=== PATIENT | male | born 1965 | race Two or more races ===

== ENCOUNTER 2018-12-19 15:14 | Inpatient (IN) ==
[2018-12-19] MEDS ORDERED: ALBUTEROL SULFATE 2.5 MG/3 ML NEB ONE ×2 (15:28→15:34)
[2018-12-19] MEDS ORDERED: methylPREDNISolone 125 MG/2 ML VIAL IVP ONE (15:28)
[2018-12-19] MEDS ORDERED: Sodium Chloride 0.9% 1,000 ML PRIMARY IV ONE (15:28)
--- NOTE | 2018-12-19 15:32 | EKG ---
[address] [address] Measurements Intervals [place] Rate: 114 P: 34 ID: [id number] QRS: -32 QRSD: 92 T: -2 QT: 330 QTc: 397 Interpretive Statements SINUS TACHYCARDIA LEFT AXIS DEVIATION No previous ECG available for comparison Electronically Signed On 12-20-18 12:59:23 MST by Daniel Schultz [email or web address]
[2018-12-19 15:54] LABS: VENOUS PH 7.51 (7.32-7.42)
[2018-12-19 16:03] LABS: BASOPHILS # (AUTO) 0.03 10*3/UL; BASOPHILS % (AUTO) 0.3 % (0-1); EOSINOPHILS # (AUTO) 0.25 10*3/UL; EOSINOPHILS % (AUTO) 2.1 % (0-8); Hematocrit [HCT] 40.9 % (42.0-52.0); Hemoglobin [HGB] 14.1 g/dL (14.0-18.0); LYMPHOCYTES # (AUTO) 2.14 10*3/uL; MEAN CORPUSCULAR HGB CONC 34.5 g/dL (33-37); MEAN PLATELET VOLUME 9.5 FL (7.4-12.2); MONOCYTES # (AUTO) 1.04 10*3/UL (0.3-0.8); MONOCYTES % (AUTO) 8.8 % (5-15); NEUTROPHILS # (AUTO) 8.27 10*3/UL; NEUTROPHILS % (AUTO) 70.1 % (50-80); RED BLOOD COUNT 4.87 10^6/uL (4.70-6.10)
[2018-12-19 16:07] LABS: PLATELET MORPHOLOGY COMMENT NORMAL MORPHOLOGY (NORM); RBC MORPHOLOGY COMMENT NORMAL MORPHOLOGY (NORM); WBC MORPHOLOGY COMMENT NORMAL MORPHOLOGY (NORM)
--- NOTE | 2018-12-19 16:15 | DI ---
XR CXR 1VW 12/19/2018 3:29 PM HISTORY: [facility] [place] [facility] ^Dyspnea Comparison: None. Findings: A single frontal view of the chest is submitted. Images demonstrate patchy left lung base opacity. There is no large pneumothorax or pleural effusion. The cardiomediastinal silhouette is within normal limits for technique. The osseous structures are g rossly unremarkable. Impression: Early left lung base airspace disease. Repeat imaging 6 weeks following completion of th erapy is recommended in order to ensure resolution.
[2018-12-19 16:16] LABS: BLOOD UREA NITROGEN 13 mg/dL (7-22); BUN/CREATININE RATIO 14.44 (6-20); SERUM ALBUMIN 4.1 g/dL (3.5-4.8)
[2018-12-19] MEDS ORDERED: cefTRIAXone Inj 2 GM in Sodium Chloride 0.9% 100 ML IV ONE (16:23)
--- NOTE | 2018-12-19 16:49 | PDOC ---
Dyspnea HPI - General Chief Complaint: Dyspnea Stated Complaint: COUGH, DYSPNEA, LOW O2 SATS Date Seen by Provider: 12/19/18 Time Seen by Provider: 15:15 Source: POSITIVE: Patient, EMS Exam Limitations: POSITIVE: No limitations Treatment Prior to Arrival: REPORTS: Oxygen, Other (DuoNeb) Nurse's Notes Reviewed & Considered: Yes EMS Report Reviewed & Considered: Verbal - History of Present Illness Initial Comments: The patient is a 53-year-old male who is brought to the emergency department by ambulance from the walk-in clinic with low oxygen levels. He had developed upper respiratory symptoms approximately 2-1/2 weeks ago. He was seen earlier this week in the walk-in clinic and diagnosed with strep throat. He was treated with amoxicillin. He states that his cough became less productive after starting on the antibiotics however he continued to have frequent dry cough. He reports that he had developed increased shortness of breath as well. He presented to the walk-in clinic where his oxygen saturations were in the 70s initially on room air. He was given a duo neb and placed on oxygen in route. The patient reports that he has not had any recent fevers however has continued to have some chills. He denies any chest pain or pain or swelling in his legs. He does not have any history of heart problems or any other significant medical history. He does not have any known history of asthma or lung disease. He does not have any significant smoking history. - Patient Home Medications Home Medications: Home Medications amoxicillin 500 mg tablet 1,000 mg PO Q12H 10 Days #40 tab 12/11/18 - Patient Allergies Allergies/Adverse Reactions: Allergies Allergy/AdvReac Type Severity Reaction Status Date / Time No Known Allergies Allergy Verified 12/19/18 15:20 Past Medical History - heen HEENT History: Denies History Cardiovascular History: Denies History Respiratory History: Denies History Gastrointestinal History: Denies History Genitourinary History: Denies History Endocrine History: Denies History Musculoskeletal History: Denies History Prosthesis or Implant: No Neurological History: Denies History Blood Disorders: Denies History Psychiatric History: Denies History Male Reproductive History: Denies History Cancer History: Denies History In Past Year Been Physically Harmed or Verbally Threatened: No History of MDRO: No Tobacco Use: Never Smoker In the Past 12 Months, Have Used or Abuse Any Substance: None Previous Surgical History: Yes Type / Date of Surgery: RT ANKLE Anesthesia Reactions: No Malignant Hyperthermia: No Family History of Malignant Hyperthermia: No Significant Family History: No pertinent family hx Past Medical History Reviewed: Reviewed - No Changes ROS - Limitations ROS Limitations: No Limitations Constitution: REPORTS: Chills. DENIES: Fever Cardiovascular: DENIES: Chest Pain, Heart Palpitations, Edema Respiratory: REPORTS: Cough Non Productive, Shortness Of Breath, Wheezing Neurological: REPORTS: Denies Neuro Symptoms Gastrointestinal: REPORTS: Denies GI Symptoms Musculoskeletal: REPORTS: Denies MS Symptoms Eyes: REPORTS: Denies Symptoms ENT: REPORTS: Congestion Skin: DENIES: Rash Dyspnea Physical Exam - General Appearance General Appearance: REPORTS: Alert, Cooperative, No Acute Distress - HEENT HEENT: POSITIVE: Head Inspection Nml, Eyes Inspection Nml, Ears Inspection Nml, Nose Inspection Nml, Pharynx Inspect. Nml - Neck Neck: REPORTS: Normal Inspection. DENIES: Lymphadenopathy - Respiratory Respiratory: REPORTS: Other (The patient does have diminished breath sounds bilaterally with some rhonchi noted at the left lung base, he does have a frequent tight cough) - Cardiovascular Cardiovascular: REPORTS: Regular Rate and Rhythm, Heart Sounds Normal Peripheral Pulses: Dorsalis-pedis (R): 2+, Dorsalis-pedis (L): 2+ - Abdomen Abdomen: Soft: (All Quadrants), Denies Tenderness: (All Quadrants), No Distention: (All Quadrants) - Skin Skin: REPORTS: Intact, No Rash - Extremities Extremity: Normal ROM: (All Extremities), Normal Inspection: (All Extremities) - Neurological / Psychological Neurological: POSITIVE: Oriented X3, Motor Normal, Sensation Normal Dyspnea Progress - Results Reviewed by me Xrays/CTs/US Reviewed by me: Yes Discussed with Radiologist: Yes Radiology Findings: Chest x-ray shows early airspace disease in the left lung base per radiologist. CTA chest shows no evidence of PE, diffuse pulmonary infiltrates bilaterally which are atypical in nature per radiologist. Lab Results Reviewed by Me: Yes CBC and BMP: 12/19/18 15:40 12/19/18 15:40 Lab Results:: Laboratory Results 12/19/18 12/19/18 12/19/18 15:40 15:40 15:40 WBC 11.80 H RBC 4.87 Hgb 14.1 Hct 40.9 L MCV 84.0 MCH 29.0 MCHC 34.5 RDW Std Deviation 36.7 L RDW Coeff of Carlos 12.2 Plt Count 393 H MPV 9.5 Immature Gran % (Auto) 0.6 Neut % (Auto) 70.1 Lymph % (Auto) 18.1 [place] % (Auto) 8.8 Eos % (Auto) 2.1 Baso % (Auto) 0.3 Immature Gran # (Auto) 0.07 Neut # (Auto) 8.27 Lymph # (Auto) 2.14 [place] # (Auto) 1.04 H Eos # (Auto) 0.25 Baso # (Auto) 0.03 WBC Morphology Comment Normal morphology Plt Morphology Comment Normal morphology RBC Morph Comment Normal morphology D-Dimer 0.84 H VBG pH VBG pCO2 VBG HCO3 VBG Base Excess Sodium Potassium Chloride Carbon Dioxide Anion Gap BUN Creatinine Estimated GFR BUN/Creatinine Ratio Glucose Calculated Osmolality Calcium Magnesium Total Bilirubin AST ALT Alkaline Phosphatase Troponin I C-Reactive Protein 18.5 H NT-Pro-B Natriuret Pep 78.5 Total Protein Albumin Globulin Albumin/Globulin Ratio 12/19/18 12/19/18 12/19/18 15:40 15:40 15:40 WBC RBC Hgb Hct MCV MCH MCHC RDW Std Deviation RDW Coeff of Carlos Plt Count MPV Immature Gran % (Auto) Neut % (Auto) Lymph % (Auto) [place] % (Auto) Eos % (Auto) Baso % (Auto) Immature Gran # (Auto) Neut # (Auto) Lymph # (Auto) [place] # (Auto) Eos # (Auto) Baso # (Auto) WBC Morphology Comment Plt Morphology Comment RBC Morph Comment D-Dimer VBG pH VBG pCO2 VBG HCO3 VBG Base Excess Sodium 137 Potassium 3.6 L Chloride 102 Carbon Dioxide 27 Anion Gap 8 BUN 13 Creatinine 0.9 Estimated GFR > 60 BUN/Creatinine Ratio 14.44 Glucose 119 H Calculated Osmolality 284.0 Calcium 8.6 L Magnesium 2.4 Total Bilirubin 0.7 AST 185 H ALT 164 H Alkaline Phosphatase 179 H Troponin I < 0.012 C-Reactive Protein NT-Pro-B Natriuret Pep Total Protein 7.5 Albumin 4.1 Globulin 3.4 Albumin/Globulin Ratio 1.20 L 12/19/18 15:46 WBC RBC Hgb Hct MCV MCH MCHC RDW Std Deviation RDW Coeff of Carlos Plt Count MPV Immature Gran % (Auto) Neut % (Auto) Lymph % (Auto) [place] % (Auto) Eos % (Auto) Baso % (Auto) Immature Gran # (Auto) Neut # (Auto) Lymph # (Auto) [place] # (Auto) Eos # (Auto) Baso # (Auto) WBC Morphology Comment Plt Morphology Comment RBC Morph Comment D-Dimer VBG pH 7.51 H VBG pCO2 28 L VBG HCO3 23 VBG Base Excess 0 Sodium Potassium Chloride Carbon Dioxide Anion Gap BUN Creatinine Estimated GFR BUN/Creatinine Ratio Glucose Calculated Osmolality Calcium Magnesium Total Bilirubin AST ALT Alkaline Phosphatase Troponin I C-Reactive Protein NT-Pro-B Natriuret Pep Total Protein Albumin Globulin Albumin/Globulin Ratio EKG Interpreted/Reviewed By Me:: Yes EKG Interpretation:: POSITIVE: Other (His EKG shows sinus tachycardia with some mild ST depression noted in V4, no other acute ST segment or T-wave changes.) - Patient's Progress MDM / ED Course: The patient's oxygen saturations were still in the 80s on O2 per nasal cannula 6 L when he arrived here in the emergency department. He received a second neb treatment with albuterol as he had received DuoNeb in route per EMS. Blood cultures and lactate were drawn with initial IV start. His initial venous blood gas showed an initial pH of 7.5 with a PCO2 of 28. His EKG shows sinus tachycardia with some minimal ST depression in leads V4. His chest x-ray shows early airspace disease in the left lung base per radiologist. He did receive Solu-Medrol 125 mg IV shortly after arrival in the emergency department. After his chest x-ray had been performed he also received Rocephin and Zithromax IV for treatment of pneumonia. His troponin and BNP were normal. His d-dimer was slightly elevated at 0.8. Because of this a CTA of the chest was ordered to rule out PE. This was negative for PE and showed atypical bilateral pulmonary infiltrates. The respiratory PCR was positive for mycoplasma. These findings were discussed with the patient and his family. I also discussed the patient with Dr. Patel who is agreed to admit the patient for further care. The patient is in agreement with this plan. - Consult Counseled: POSITIVE: Patient, Family, RE: Lab Results, RE: Radiology Results, RE: DX, RE: Need for F/U Patient Care Time - Estimated PCT Patient Care Time (In Minutes): 45 Vital Signs - VS Reviewed Vital Signs Reviewed: Yes Discharge Clinical Impression: Pneumonia, Hypoxia, Reactive airway disease, Mycoplasma pneumonia Discharge Disposition: Admit to Inpatient Condition: Fair Date Decision to Admit to Inpatient: 12/19/18 Time Decision to Admit to Inpatient: 17:45
--- NOTE | 2018-12-19 17:41 | DI ---
EXAM: CT Chest With Intravenous Contrast CLINICAL HISTORY: ITS.REASON hypoxia, elevated d-dimer Physician Notes: Tech Comments: TECHNIQUE: Axial computed tomography images of the chest with intravenous contrast. MIP reconstructed images were created and reviewed. COMPARISON: No relevant prior studies available. FINDINGS: Lungs: No central pulmonary embolus. Diffuse bilateral nodular infiltrates. Small area of consolidation at the left lung base. Pleural space: Unremarkable. No pneumothorax. No effusion. Heart: No cardiomegaly. No pericardial effusion. Bones/joints: No acute fracture. Soft tissues: Unremarkable. Vasculature: No aortic aneurysm or dissection. Lymph nodes: Mild mediastinal and hilar adenopathy. IMPRESSION: 1. No central pulmonary embolus. 2. Diffuse bilateral nodular infiltrates. Small area of consolidation at the left lung base. Consider infectious process including bacterial organisms, including TB, fungal etc. There is a broader differential aside from infectious etiologies. [employer] 12/19/18 17:54 Verify Receipt Verified receipt with Dr. Vernon Donovan on 12/19 17:53 (-07:00)
--- NOTE | 2018-12-19 19:22 | PDOC ---
HPI - History of Present Illness Date of Service: 12/19/18 Time of Service: 19:40 Chief Complaint: Cough of more than a week duration History of Present Illness: This is a 53 years old male with no significant past medical history who was sent to the ER from the walk-in clinic because of cough and low oxygen sat. He said his symptoms started about 2-1/2 weeks ago with dry cough then on the he went to the walk-in clinic he was diagnosed with strep throat he was put on amoxicillin. He continued to have the cough but was more productive with green yellow phlegm. Started to develop increasing shortness of breath which he said is more after coughing. He went to the walk-in clinic 8 was found that his saturation was low he was given nebs and sent to the ER. He denied fever did have some chills. There was no pain in the chest or swelling in the legs. Evaluation in the ER revealed early airspace disease in the left lung, d-dimer was elevated so had the CT of the chest and the CT showed evidence of for bilateral infiltrates. He did receive a Zithromax and Rocephin and was admitted. He said he does feel somewhat better compared to when he came in. Past Medical History Medical History: No significant past medical history Surgical History: Study of previous surgery on his right ankle Family History: Reviewed an Not Pertinent Past Social History: Does not smoke, does not drink no drugs. He said he quit d rinking 6 months ago he used to drink a lot. Tobacco Use: Never Smoker In the Past 12 Months, Have Used or Abuse Any of the Following Substance: None Alcohol Use: None Medication / Allergies Home Medications: Home Medications Medication Instructions Recorded Confirmed Type amoxicillin 500 mg tablet 1,000 mg PO Q12H 10 Days #40 tab 12/11/18 12/19/18 Rx Allergies/Adverse Reactions: Allergies Allergy/AdvReac Type Severity Reaction Status Date / Time No Known Allergies Allergy Verified 12/20/18 06:54 Review of Systems - Review of Systems All Systems: Reviewed & No Additional Complaints Except as Stated Exam - Vitals Vital Signs: Vital Signs Temperature 98.8 F Temperature Source Temporal Artery Scan Pulse Rate [Telemetry] 120 Pulse Rate [Pulse Oximeter 120 Right] Pulse Rate 114 Respiratory Rate 36 Blood Pressure [Left Arm] 147/87 Pulse Ox 89 Oxygen Flow Rate 6 LPM Oxygen Delivery Method Nasal Cannula Height 5 ft 7 in Weight 182 lb - General General Appearance: No Acute Distress, Cooperative - Head Head Exam: Normal Inspection - Eye Eye Exam: POSITIVE: Normal Appearance - ENT ENT Exam: POSITIVE: Normal External Ear Exam - Neck Neck Exam: Normal Inspection - Respiratory Additional Respiratory Exam Details: Fine crackles at the bases. - Cardiovascular Cardiovascular Exam: POSITIVE: RRR, Tachycardia - GI/Abdominal GI/Abdominal Exam: POSITIVE: Normal Bowel Sounds, Non Tender, Non Distended, Soft, No Organomegaly - Rectal Rectal Exam: POSITIVE: Deferred - External Exam: POSITIVE: Deferred Exam: POSITIVE: Deferred - Extremities Extremities Exam: POSITIVE: Normal Inspection - Back Back Exam: POSITIVE: Normal Inspection - Neurological Neurological Exam: POSITIVE: Alert, Oriented x 3, CN II-XII Intact, No Facial Droop, Speech Intact / Clear, Moves All Extremities Equally - Psychiatric Psychiatric Exam: POSITIVE: Normal Affect - Integumentary Integumentary Exam: POSITIVE: Normal Color Results - Labs CBC and BMP: 12/20/18 04:08 12/20/18 04:08 - EKG Data -: EKG Interpreted by Me Rate: Tachycardia EKG Shows Normal: Sinus Rhythm - EKG Data EKG Interpretation: Other (EKG showed sinus tachycardia with incomplete right bundle branch block) - Imaging Status: Report Reviewed by Me (CT chest 1. No central pulmonary embolus. 2. D iffuse bilateral nodular infiltrates. Small area of consolidation at the left lung base. Consider infectious process including bacterial organisms, including TB, fungal etc. There is a broader differential aside from infectious etiologies. Chest x-ray Early left lung base airspace disease. Repeat imaging 6 weeks following completion of therapy is recommended in order to ensure resolution.) Assessment and Plan - Patient Problems (1) Pneumonia Current Visit: Yes Status: Acute Comment: He did receive Zithromax and the Rocephin will continue with those. I think the bilateral infiltrates probably secondary to the pneumonia. Respiratory panel was positive for mycoplasma. I think will give him steroid as his CRP is elevated and he's on 6 L of oxygen Code(s): J18.9 - Pneumonia, unspecified organism (2) Elevated LFTs Current Visit: Yes Status: Acute Comment: Probably secondary to the infection will repeat those tomorrow Code(s): R94.5 - Abnormal results of liver function studies
[2018-12-19] MEDS ORDERED: ONDANSETRON 4 MG/2 ML VIAL IVP PRN (19:47)
[2018-12-19] MEDS ORDERED: LIDOCAINE W/ SODIUM BICARB 0.5 ML SYR SUBD PRN (19:47)
[2018-12-20] MEDS: methylPREDNISolone 40 MG/1 ML VIAL IVP SCH ×2 (03:52→15:57)
[2018-12-20 05:19] LABS: BASOPHILS # (AUTO) 0.02 10*3/UL; BASOPHILS % (AUTO) 0.2 % (0-1); EOSINOPHILS # (AUTO) 0 10*3/UL; EOSINOPHILS % (AUTO) 0 % (0-8); Hematocrit [HCT] 39.7 % (42.0-52.0); Hemoglobin [HGB] 13.4 g/dL (14.0-18.0); LYMPHOCYTES # (AUTO) 0.94 10*3/uL; MEAN CORPUSCULAR HEMOGLOBIN 28.7 PG (27-31); MEAN CORPUSCULAR HGB CONC 33.8 g/dL (33-37); MEAN PLATELET VOLUME 10.1 FL (7.4-12.2); MONOCYTES # (AUTO) 0.32 10*3/UL (0.3-0.8); MONOCYTES % (AUTO) 3.4 % (5-15); NEUTROPHILS # (AUTO) 8.12 10*3/UL; NEUTROPHILS % (AUTO) 86.1 % (50-80); RED BLOOD COUNT 4.67 10^6/uL (4.70-6.10)
[2018-12-20 05:31] LABS: BLOOD UREA NITROGEN 13 mg/dL (7-22); BUN/CREATININE RATIO 18.57 (6-20); SERUM ALBUMIN 3.7 g/dL (3.5-4.8)
[2018-12-20 06:15] LABS: PLATELET MORPHOLOGY COMMENT NORMAL MORPHOLOGY (NORM); RBC MORPHOLOGY COMMENT NORMAL MORPHOLOGY (NORM); WBC MORPHOLOGY COMMENT NORMAL MORPHOLOGY (NORM)
[2018-12-20] MEDS: ALBUTEROL SULFATE 2.5 MG/3 ML NEB PRN ×2 (08:03→15:00)
--- NOTE | 2018-12-20 09:23 | PDOC(PROG) ---
Date of Service: 12/20/18 Time of Service: 09:00 Interval History: Subjective Patient said he feels better compared to when he came in. He is still coughing and his phlegm is more clear. No chest pain. So he feels short of breath when he coughs. But overall he feels better than yesterday Objective : Data - Labs CBC and BMP: 12/20/18 04:08 12/20/18 04:08 Objective : Exam - General General Appearance: No Acute Distress, Cooperative - Head Head Exam: Normal Inspection - Eye Eye Exam: Normal Appearance - ENT ENT Exam: Normal Exam - Neck Neck Exam: Normal Inspection - Respiratory Additional Respiratory Exam Details: Still have bilateral crackles and occasional wheeze.. - Cardiovascular Cardiovascular Exam: RRR - GI/Abdominal GI/Abdominal Exam: Normal Bowel Sounds, Non Tender, Non Distended, Soft, No Organomegaly - Rectal Rectal Exam: Deferred - External Exam: Deferred Exam: Deferred - Extremities Extremities Exam: Normal Inspection - Back Back Exam: Normal Inspection - Neurological Neurological Exam: Alert, Oriented x 3, CN II-XII Intact, No Facial Droop, S peech Intact / Clear, Moves All Extremities Equally - Psychiatric Psychiatric Exam: Normal Affect - Integumentary Integumentary Exam: Normal Color Assessment and Plan - Patient Problems (1) Pneumonia Current Visit: Yes Status: Acute Comment: I think we'll continue with IV antibiotics and IV steroid. I did tell him I don't think he is ready to go home yet. I think will repeat his chest x- ray today. Code(s): J18.9 - Pneumonia, unspecified organism (2) Elevated LFTs Current Visit: Yes Status: Acute Comment: Maybe secondary to the infection. Will send for hepatitis screen. He used to do drink a lot according to him and he stopped 6 months ago so this may be a result of that. Code(s): R94.5 - Abnormal results of liver function studies
--- NOTE | 2018-12-20 09:49 | DI ---
PORTABLE AP UPRIGHT CXR: HISTORY: 53-year-old male with SOB, pneumonia; follow-up. COMPARISON: Portable CXR and chest CTA with intravenous contrast 12/19/2018. FINDINGS: Compared to the prior CXR, and allowing for differences in technique, there has been no definite significant interval change. There are persistent subtle patchy ill-defined groundglass and reticulonodular opacities bilaterally, greatest in the left lung base, without confluent consolidation. Heart size is normal and stable. No obvious hilar or mediastinal mass. No obvious pneumothorax or effusion. IMPRESSION: No significant short interval change.
[2018-12-20] MEDS: ENOXAPARIN SODIUM 40 MG/0.4 ML SYRINGE SUBCUT SCH (11:17)
[2018-12-20] MEDS: cefTRIAXone Inj 2 GM in Sodium Chloride 0.9% 100 ML IV SCH (15:56)
[2018-12-21] MEDS: methylPREDNISolone 40 MG/1 ML VIAL IVP SCH ×2 (04:18→16:09)
[2018-12-21 05:19] LABS: Hematocrit [HCT] 37.4 % (42.0-52.0); Hemoglobin [HGB] 12.2 g/dL (14.0-18.0); MEAN CORPUSCULAR HGB CONC 32.6 g/dL (33-37); MEAN PLATELET VOLUME 9.9 FL (7.4-12.2); RED BLOOD COUNT 4.35 10^6/uL (4.70-6.10)
[2018-12-21 05:34] LABS: BLOOD UREA NITROGEN 14 mg/dL (7-22); SERUM ALBUMIN 3.2 g/dL (3.5-4.8)
[2018-12-21 05:46] LABS: PLATELET MORPHOLOGY COMMENT NORMAL MORPHOLOGY (NORM); RBC MORPHOLOGY COMMENT NORMAL MORPHOLOGY (NORM); WBC MORPHOLOGY COMMENT NORMAL MORPHOLOGY (NORM)
[2018-12-21 05:48] LABS: BASOPHILS % (MANUAL) 0 % (0-1); EOSINOPHILS % (MANUAL) 0 % (0-8); METAMYELOCYTES % 0 %; MYELOCYTES % 0 %; NEUTROPHILS % (MANUAL) 85 % (50-80); PROMYELOCYTES % 0 %
[2018-12-21 05:49] LABS: BAND NEUTROPHILS % 0 % (0-10); MONOCYTES % (MANUAL) 4 % (0-12)
[2018-12-21] MEDS: ENOXAPARIN SODIUM 40 MG/0.4 ML SYRINGE SUBCUT SCH ×2 (09:06→12:16)
[2018-12-21] MEDS ORDERED: GUAIFENESIN/DM 5 ML UD CUP PO PRN (09:43)
--- NOTE | 2018-12-21 09:53 | PDOC(PROG) ---
Date of Service: 12/21/18 Time of Service: 10:00 Interval History: Subjective Still have the cough still there is a phlegm which he described as green at times clear. Overall he said he made about 50% improvement. Today is similar to yesterday. Objective : Data - Labs CBC and BMP: 12/21/18 04:45 12/21/18 04:45 Objective : Exam - General General Appearance: No Acute Distress, Cooperative - Head Head Exam: Normal Inspection - Eye Eye Exam: Normal Appearance - ENT ENT Exam: Normal Exam - Neck Neck Exam: Normal Inspection - Respiratory Additional Respiratory Exam Details: Still bilateral crackles heard at the lung bases. - Cardiovascular Cardiovascular Exam: RRR - GI/Abdominal GI/Abdominal Exam: Normal Bowel Sounds, Non Tender, Non Distended, Soft, No Organomegaly - Rectal Rectal Exam: Deferred - External Exam: Deferred Exam: Deferred - Extremities Extremities Exam: Normal Inspection - Back Back Exam: Normal Inspection - Neurological Neurological Exam: Alert, Oriented x 3, CN II-XII Intact, No Facial Droop, Speech Intact / Clear - Psychiatric Psychiatric Exam: Normal Affect Assessment and Plan - Patient Problems (1) Pneumonia Current Visit: Yes Status: Acute Comment: he is still needing oxygen his oxygen did drop 87 on 4 L while walking . On the resting he needs 4 L. Continue Zithromax and Rocephin. Biofire was positive for mycoplasma. I think the elevated white count is a result of steroid. Code(s): J18.9 - Pneumonia, unspecified organism (2) Elevated LFTs Current Visit: Yes Status: Acute Comment: LFTs seem to be improving probably secondary to the infection. Code(s): R94.5 - Abnormal results of liver function studies
[2018-12-21] MEDS: cefTRIAXone Inj 2 GM in Sodium Chloride 0.9% 100 ML IV SCH (16:09)
[2018-12-22] MEDS: methylPREDNISolone 40 MG/1 ML VIAL IVP SCH ×2 (04:31→15:05)
[2018-12-22 05:47] LABS: BLOOD UREA NITROGEN 15 mg/dL (7-22); BUN/CREATININE RATIO 18.75 (6-20)
[2018-12-22 07:46] VITALS: RESP 12
--- NOTE | 2018-12-22 11:28 | DCSUMMARY ---
Hospitalization Summary Admit Date: 12/19/2018 Discharge Date: 12/22/18 Hospital Course: Discharge diagnoses 1. Diffuse bilateral nodular infiltrate, with small area of consolidation at the left lung base. Consider infectious process for it. Respiratory panel was positive for mycoplasma pneumonia 2. Hypoxia secondary to the above 3. Elevated LFTs improving probably secondary to infection Discharge diagnoses This is a 53 years old male with no significant past medical history who was s ent to the ER from the walking clinic because of cough and low oxygen sat. He said his symptoms started about 2-1/2 weeks prior to his presentation with dry cough on the he went to the walk-in clinic he was diagnosed with strep throat and was put on amoxicillin. He continued to have the cough which was more productive with green yellow phlegm. He Started to have increased shortness of breath which he said was more after coughing. He went to the walk- in clinic was found to have low saturation he was given neb and sent to the ER. He denied fever but did have some chills. Evaluation in the ER revealed early air space disease in the left lung on the chest x-ray, d-dimer was elevated so he had a CT chest which showed no PE but did show diffuse bilateral nodular infiltrates, small area of consolidation of the lung left base, consider infectious process including bacterial organism etc. there is a broad differential diagnosis. Respiratory panel test was positive for mycoplasma. He was admitted to the hospital and was treated as pneumonia . We put him on Rocephin and Zithromax. Because his CRP was elevated and he was hypoxic we did start him also on steroid. His LFTs were elevated. We did send a hepatitis screen and were pending. His oxygen needs initially was about 6 L. On the day of discharge went down to 3 L. He did say that he felt improvement. Still had some crackles at the bases of his lungs present. I did tell him I'm treating this is an infectious process and I'm hoping with time he would recover. He need follow-up with a primary after he finishes his course to see whether he continued to make improvements and he can go off the oxygen. I did tell him if this did not improve he'll need further testing as this there are other reasons causing this picture apart from infection including inflammatory or chemical exposure. 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 Discharge instruction Diet regular Activity as tolerated Medications Current Medication(s) Medication Instructions Recorded Confirmed Type Albuterol Neb Soln 0.083% 2.5 mg NEB QID PRN #30 vial.neb 12/22/18 Rx Azithromycin [Zithromax] 250 mg PO DAILY #4 tab 12/22/18 Rx Cefdinir 300 mg PO BID #8 cap 12/22/18 Rx predniSONE Tab [Deltasone Tab] 40 mg PO DAILY #10 tab 12/22/18 Rx Follow-up as scheduled with PCP next Saturday Condition at discharge was stable for discharge Exam - Vitals Vital Signs: Vital Signs Temperature 97.2 F Temperature Source Temporal Artery Scan Pulse Rate [Telemetry] 85 Pulse Rate [Pulse Oximeter 71 Right] Pulse Rate 76 Respiratory Rate 12 Blood Pressure [Right Arm] 128/81 Blood Pressure [Left Arm] 118/74 Pulse Ox 90 Oxygen Flow Rate 3 Oxygen Delivery Method Room Air Height 5 ft 7 in Weight 181 lb - General General Appearance: No Acute Distress, Cooperative - Head Head Exam: Normal Inspection - Eye Eye Exam: POSITIVE: Normal Appearance - ENT ENT Exam: POSITIVE: Normal Exam - Neck Neck Exam: Normal Inspection - Respiratory Additional Respiratory Exam Details: Still have crackles at the bases. - Cardiovascular Cardiovascular Exam: POSITIVE: RRR - GI/Abdominal GI/Abdominal Exam: POSITIVE: Normal Bowel Sounds, Non Tender, Non Distended, Soft, No Organomegaly - Rectal Rectal Exam: POSITIVE: Deferred - External Exam: POSITIVE: Deferred - Extremities Extremities Exam: POSITIVE: Normal Inspection - Back Back Exam: POSITIVE: Normal Inspection - Neurological Neurological Exam: POSITIVE: Alert, Oriented x 3, CN II-XII Intact - Psychiatric Psychiatric Exam: POSITIVE: Normal Affect - Integumentary Integumentary Exam: POSITIVE: Normal Color Patient Problems - Patient Problem List (1) Pneumonia Status: Acute Code(s): J18.9 - Pneumonia, unspecified organism Category: Medical (2) Elevated LFTs Status: Acute Code(s): R94.5 - Abnormal results of liver function studies Category: Medical
[2018-12-22 13:45] VITALS: BP 143/74; TEMP 97; O2SAT 91
[2018-12-22] MEDS: cefTRIAXone Inj 2 GM in Sodium Chloride 0.9% 100 ML IV SCH (15:19)
[2018-12-23 11:28] LABS: HEP B CORE IGM ANTIBODY Negative (Negative); HEPATITIS B SURFACE AG Negative (Negative)
[2018-12-23 14:06] LABS: HEPATITIS A IGM Negative (Negative)
== END 2018-12-22 17:05 | disposition home or self-care (01) | DRG 195 ==
LOC: ER 15:14 → MED/SURG 19:21
PROVIDERS: ADMIT Internal Medicine; ATTEND Internal Medicine